=== PATIENT | female | born 1990 | race Caucasian/White ===

== ENCOUNTER 2021-08-25 03:59 | Emergency (ER) | payer MEDICAID ==
[~2021-08-25] VITALS: Ht 154.9 cm; Wt 112.9 kg
[2021-08-25] MEDS ORDERED: FLUORESCEIN SODIUM 1MG/STRIP LEFTEYE ONE (04:30)
[2021-08-25] MEDS ORDERED: TETRACAINE 0.5% OPHTH DROPS 4ML LEFTEYE ONE (04:30)
[2021-08-25] MEDS ORDERED: ACETAMINOPHEN 325MG TABLET PO ONE (04:30)
[2021-08-25] MEDS ORDERED: ERYT1OIN6 RIGHTEYE (05:01)
[2021-08-25] MEDS ORDERED: ACET-2708 MT (05:01)
[2021-08-25] MEDS ORDERED: TETANUS, DIPHTHERIA, PERTUSSIS VAC/PF 0.5ML (>10YR OLD) IM ONE (05:15)
[2021-08-25 05:19] VITALS: BP 128/78
== END 2021-08-25 05:42 | disposition home or self-care (01) ==
LOC: ER 03:59
DX: S05.01XA Injury of conjunctiva and corneal abrasion without foreign body, right eye, initial encounter (principal); X58.XXXA Exposure to other specified factors, initial encounter; Y93.89 Activity, other specified; Y92.89 Other specified places as the place of occurrence of the external cause; Y99.8 Other external cause status
CPT/HCPCS: 99283